=== PATIENT | male | born 1990 | race Caucasian/White ===

== ENCOUNTER 2021-06-15 08:03 | Inpatient (IN) | payer OTHER ==
[~2021-06-15] VITALS: Ht 61 cm; Wt 6.0 kg
== END 2021-07-02 10:59 | disposition home or self-care (01) | DRG 329 ==
LOC: ER 08:03 → O/R 14:44 → ICU 14:44 → ICU-2 14:44 → O/R 06-16 13:29 → ICU 06-16 20:00 → MEDJ 06-26 09:49 → ICU 06-26 09:59 → MEDJ 06-26 11:57
PROVIDERS: ADMIT Internal Medicine; ATTEND Internal Medicine
PROC: 0DTB0ZZ Resection of Ileum, Open Approach (ICD-10-PCS; principal; 2021-06-15)
PROC: 0BH17EZ Insertion of Endotracheal Airway into Trachea, Via Natural or Artificial Opening (ICD-10-PCS; 2021-06-15)
PROC: 5A1945Z Respiratory Ventilation, 24-96 Consecutive Hours (ICD-10-PCS; 2021-06-15)
PROC: B54DZZZ Ultrasonography of Bilateral Lower Extremity Veins (ICD-10-PCS; 2021-06-15)
PROC: 30233N1 Transfusion of Nonautologous Red Blood Cells into Peripheral Vein, Percutaneous Approach (ICD-10-PCS; 2021-06-15)
PROC: BW21ZZZ Computerized Tomography (CT Scan) of Abdomen and Pelvis (ICD-10-PCS; 2021-06-15)
PROC: B34HZZZ Ultrasonography of Right Upper Extremity Arteries (ICD-10-PCS; 2021-06-15)
PROC: BW25YZZ Computerized Tomography (CT Scan) of Chest, Abdomen and Pelvis using Other Contrast (ICD-10-PCS; 2021-06-15)
PROC: 02HV33Z Insertion of Infusion Device into Superior Vena Cava, Percutaneous Approach (ICD-10-PCS; 2021-06-16)
DX: K55.029 Acute infarction of small intestine, extent unspecified (principal); E13.10 Other specified diabetes mellitus with ketoacidosis without coma; R65.21 Severe sepsis with septic shock; A41.89 Other specified sepsis; J69.0 Pneumonitis due to inhalation of food and vomit; J96.02 Acute respiratory failure with hypercapnia; J96.01 Acute respiratory failure with hypoxia; K29.01 Acute gastritis with bleeding; R18.8 Other ascites; F10.231 Alcohol dependence with withdrawal delirium; J90 Pleural effusion, not elsewhere classified; N17.8 Other acute kidney failure; J98.11 Atelectasis; M62.82 Rhabdomyolysis; I80.8 Phlebitis and thrombophlebitis of other sites; Z79.4 Long term (current) use of insulin; D69.6 Thrombocytopenia, unspecified; D64.9 Anemia, unspecified; F43.20 Adjustment disorder, unspecified; Z20.822 Contact with and (suspected) exposure to COVID-19

== ENCOUNTER 2021-08-19 12:23 | Outpatient (CLI) | payer OTHER | END 2021-08-19 12:36 | disposition home or self-care (01) | LOC: RAD 12:23 | PROVIDERS: ATTEND Internal Medicine | DX: I11.9 Hypertensive heart disease without heart failure (principal) ==

== ENCOUNTER 2022-12-15 11:22 | Inpatient (IN) | payer OTHER ==
[~2022-12-15] VITALS: Ht 182.9 cm; Wt 77.1 kg
== END 2022-12-18 11:12 | disposition designated cancer center or children's hospital (05) | DRG 299 ==
LOC: ER 11:22 → MEDI 17:40 → MEDJ 17:40 → MEDI 18:16
PROVIDERS: ADMIT Internal Medicine; ATTEND Internal Medicine
PROC: B54CZZZ Ultrasonography of Left Lower Extremity Veins (ICD-10-PCS; principal; 2022-12-15)
PROC: 4A12X4Z Monitoring of Cardiac Electrical Activity, External Approach (ICD-10-PCS; 2022-12-15)
DX: I82.422 Acute embolism and thrombosis of left iliac vein (principal); K55.059 Acute (reversible) ischemia of intestine, part and extent unspecified; F10.939 Alcohol use, unspecified with withdrawal, unspecified; I82.412 Acute embolism and thrombosis of left femoral vein; Z20.822 Contact with and (suspected) exposure to COVID-19